=== PATIENT | female | born 1985 | race Caucasian/White ===

== ENCOUNTER 2016-09-20 22:02 | Emergency (ER) | payer OTHER ==
--- NOTE | 2016-09-20 22:11 | PDOC ---
History of Present Illness - General Chief Complaint: Chest Pain Stated Complaint: CHEST PAIN - History of Present Illness Initial Comments: This 31-year-old woman with a family history of breast cancer and history of breast implants placed several years ago, presents with 1 month history of left breast/left shoulder pain. Pain is worse with movement of her left arm and with direct pressure against the lateral aspect of her left breast. Patient has been seen by her plastic surgeon for this pain who does not believe symptoms are related to the implants. Patient has been taking NSAIDs ( ibuprofen 400 mg twice a day) without significant improvement in her pain. No known history of trauma or overuse (although the patient and her state that she routinely engages in very strenuous housekeeping tasks .) No increased pain with deep breathing; no diaphoresis/nausea noted. No fever/ chills Because of the persistent symptoms despite anti-inflammatory medications , plastic surgeon suggested the patient come to the emergency room for evaluation. Patient has appointment with her breast surgeon, Dr. Elliott in 2 weeks Patient has had chest congestion, subjective fever, nonproductive cough for the last several days. Patient's mother and maternal grandmother both diagnosed with breast cancer at an early age; mother of disease at age 33. No other relatives with breast cancer. Patient is BRCC negative. She gets yearly mammograms all of which have been negative. She had a benign growth of the right nipple removed by Dr. Elliott several years ago. Cardiac risk factors: Positive smoking, positive family history (paternal); otherwise negative 0 Past History - Past Medical History Allergies/Adverse Reactions: Allergies Allergy/AdvReac Type Severity Reaction Status Date / Time Penicillins Allergy Verified 09/20/16 22:04 Home Medications: Ambulatory Orders Ibuprofen [Advil -] 400 mg PO BID 09/20/16 Multivitamins [Tab-A-Vit -] 1 tab PO DAILY 09/20/16 Ketorolac Tromethamine [Toradol] 10 mg PO Q6H PRN #20 tablet 09/21/16 Review of Systems - Review of Systems Able to Perform ROS?: Yes Comments:: 12 point review of systems is negative except for what is noted in the history of present illness *Physical Exam - Vital Signs Last Vital Signs Temp Pulse Resp BP Pulse Ox 98.4 F 83 16 106/73 100 09/20/16 22:10 09/20/16 22:10 09/20/16 22:10 09/20/16 22:10 09/20/16 22:10 - Physical Exam Comments: GENERAL: Awake, alert, and fully oriented, in no acute distress HEAD: No signs of trauma EYES: PERRLA, EOMI, sclera anicteric, conjunctiva clear ENT: Auricles normal inspection, hearing grossly normal, nares patent, oropharynx clear without exudates. Moist mucosa NECK: Normal ROM, supple, no lymphadenopathy, JVD, or masses LUNGS: Breath sounds clear and equal. No wheezes, and no crackles CHEST WALL: Left breastno clear evidence of edema or erythema; no masses palpated Mild tenderness of base of lateral aspect of breast No reproduction of pain with movement of left arm; left axilla without masses or tenderness Chest wall exam otherwise normal HEART: Regular rate and rhythm, normal S1 and S2, no murmurs, rubs or gallops ABDOMEN: Soft, nontender, normoactive bowel sounds. No guarding, no rebound. No masses EXTREMITIES: Normal range of motion, no edema. No clubbing or cyanosis. No cords, erythema, or tenderness NEUROLOGICAL: Cranial nerves II through XII grossly intact. Normal speech, normal gait SKIN: Warm, Dry, normal turgor, no rashes or lesions noted. ED Treatment Course - LABORATORY CBC & Chemistry Diagram: 09/20/16 23:12 09/20/16 23:12 - ADDITIONAL ORDERS Additional order review: Laboratory Results 09/20/16 09/20/16 23:12 23:12 Sodium 135 L Potassium 4.4 Chloride 107 Carbon Dioxide 27 Anion Gap 1 L BUN 16 Creatinine 0.7 Creat Clearance w eGFR > 60 Random Glucose 85 Calcium 8.9 Total Bilirubin 0.4 AST 23 ALT 26 Alkaline Phosphatase 54 Creatine Kinase 53 Troponin I < 0.03 L Total Protein 6.3 L Albumin 3.8 09/20/16 23:12 RBC 4.15 MCV 91.3 MCHC 35.8 RDW 12.0 MPV 9.5 Neutrophils % 42.7 L Lymphocytes % 39.6 Monocytes % 13.0 H Eosinophils % 3.8 Basophils % 0.9 - Medications Given in the ED: ED Medications Discontinued Medications Generic Name Dose Route Start Last Admin Trade Name Freq PRN Reason Stop Dose Admin Ketorolac Tromethamine 30 mg 09/20/16 23:37 09/20/16 23:42 Toradol Injection - IVPUSH 09/20/16 23:38 30 mg ONCE ONE Administration Progress Note - Progress Note Progress Note: Twelve-lead electrocardiogram shows normal sinus rhythm at 77 bpm; wave forms, intervals and axis are all normal. His no evidence of acute ST or T-wave abnormalities. This 31-year-old woman with a family history of early breast cancer, personally BRCC negative, but having bilateral breast implants in place presents with 1 month history of pain of the left upper chest, worse with movement and direct palpation. She has been seen by her plastic surgeon who has found no evidence of the pain being related to her implants. She has an upcoming follow-up appointment with her breast surgeon in the next 2 weeks. Exam as noted shows chest wall tenderness around the left breast. No clear evidence of acute inflammation around the left breast. Although she has 2 risk factors only for coronary artery disease and her EKG is normal, cardiac enzymes were sent as well as CBC/chemistry profile. CBC shows normal white blood cell count with predominance of monocytes, chemistry profile, including cardiac enzymes are essentially normal While patient was awaiting results of her laboratory evaluation, she is given Toradol 30 mg IV. Patient reports significant relief in her pain after Toradol (no longer has tenderness of the lateral aspect of the breast). Results of the laboratory evaluation discussed with the patient and her . Although breast cancer cannot be fully ruled out without further imaging, there is no evidence of acute infectious/inflammatory process going on. Patient has been advised to call her breast surgeon's office on Thursday to relate that she has been to the emergency room because of her escalating pain; she should attempt to move up the appointment to within the next week to 10 days. She should return to the emergency room if she has worsening pain/shortness of breath/fever. Prescription for Toradol 10 mg up to 4 times a day as needed will be sent to her pharmacy. *DC/Admit/Observation/Transfer Diagnosis at time of Disposition: Chest pain radiating to upper extremity - Discharge Dispostion Disposition: HOME Condition at time of disposition: Stable - Prescriptions Prescriptions: Ketorolac Tromethamine [Toradol] 10 mg PO Q6H PRN #20 tablet PRN Reason: Pain - Referrals Referrals: Syed Marie [Primary Care Provider] - - Patient Instructions Printed Discharge Instructions: DI for Atypical Chest Pain Additional Instructions: rest;drink plenty of fluids toradol 10 mg up to 4 times a day(take with food) followup with your breast surgeon(call office on Thursday as discussed) return to ER if pain worsens or you develop fever/shortness of breath
[2016-09-20 22:13] VITALS: BP 106/73; PULSE 83; TEMP 98.4; BMI 28.3
[2016-09-20 23:31] LABS: BASOPHIL 0.9 % (0-2.0); EOSINOPHIL 3.8 % (0-4.5); MCH 32.7 pg (25.7-33.7); MCHC 35.8 g/dl (32.0-36.0); MEAN CELL VOLUME 91.3 fl (80-96); MEAN PLT VOLUME 9.5 fl (7.5-11.1); NEUTROPHILS 42.7 % (42.8-82.8); PLATELET COUNT 247 K/MM3 (134-434); WHITE BLOOD COUNT 6.4 K/mm3 (4.0-10.0)
[2016-09-20] MEDS ORDERED: KETOROLAC TROMETHAMINE 30 MG/1 ML VIAL IVPUSH ONE (23:37)
[2016-09-20] MEDS ORDERED: KETOROLAC TROMETHAMINE 30 MG/1 ML VIAL ONE (23:38)
[2016-09-20 23:41] LABS: ALBUMIN 3.8 g/dl (3.5-5.0); ALK PHOS 54 U/L (32-92); ANION GAP 1 (8-16); CALCIUM 8.9 mg/dl (8.4-10.2); CO2 27 mmol/L (22-28); COCKROFT - GAULT 132.1835; CREATININE 0.7 mg/dl (0.6-1.3); GLUCOSE,RANDOM 85 mg/dl (74-106); SGOT/AST 23 U/L (10-42); SGPT/ALT 26 U/L (10-40); TOT PROT 6.3 g/dl (6.4-8.3)
[2016-09-20 23:42] LABS: CPK(DFH) 53 IU/L (26-140)
[2016-09-20 23:50] LABS: BILIRUBIN,TOTAL 0.4 mg/dl (0.2-1.0); TROPONIN I (DFP) < 0.03 ng/ml (0.03-0.50)
--- NOTE | 2016-09-22 09:08 | EKG ---
Test Reason : Blood Pressure : / mmHG Vent. Rate : 077 BPM Atrial Rate : 077 BPM P-R Int : 128 ms QRS Dur : 076 ms QT Int : 374 ms P-R-T Axes : 044 059 032 degrees QTc Int : 423 ms SINUS RHYTHM NONSPECIFIC T WAVE ABNORMALITY NO PREVIOUS ECGS AVAILABLE Confirmed by GERMAN ANGEL MD ([id number]) on 09/22/2016 9:07:52 AM Referred By: [email or web address] Confirmed By:GERMAN ANGEL MD
== END 2016-09-21 00:23 | disposition home or self-care (01) ==
LOC: FER 22:02
PROC: 3E0333Z Introduction of Anti-inflammatory into Peripheral Vein, Percutaneous Approach (ICD-10-PCS; principal; 2016-09-20)
DX: R07.89 Other chest pain (principal)
CPT/HCPCS: 36415; 80053; 82550; 84484; 85025; 93005; 99282-25